=== PATIENT | male | born 1990 | race Caucasian/White ===

== ENCOUNTER 2016-05-24 16:23 | Emergency (ER) | payer SELFPAY | END 2016-05-24 17:58 | disposition home or self-care (01) | LOC: D.ER 16:23 | DX: J02.9 Acute pharyngitis, unspecified (principal) ==

== ENCOUNTER 2016-11-20 13:10 | Emergency (ER) | payer SELFPAY | END 2016-11-20 15:15 | disposition home or self-care (01) | LOC: D.ER 13:10 | DX: S93.401A Sprain of unspecified ligament of right ankle, initial encounter (principal); X58.XXXA Exposure to other specified factors, initial encounter; Y93.67 Activity, basketball; Y92.019 Unspecified place in single-family (private) house as the place of occurrence of the external cause ==